=== PATIENT | male | born 1930 | race African-American/Black ===

== ENCOUNTER → 2019-11-03 | Emergency (ER) | payer MEDICARE, OTHER ==
[~2019-11-03] VITALS: Ht 172.7 cm; Wt 77.1 kg
[2019-11-04 05:57] VITALS: BP 162/79
== END | disposition home or self-care (01) ==
LOC: EDBD 22:22 → ER 22:22
DX: S01.81XA Laceration without foreign body of other part of head, initial encounter (principal); F03.90 Unspecified dementia, unspecified severity, without behavioral disturbance, psychotic disturbance, mood disturbance, and anxiety; W01.198A Fall on same level from slipping, tripping and stumbling with subsequent striking against other object, initial encounter; Y93.89 Activity, other specified; Y92.89 Other specified places as the place of occurrence of the external cause; Y99.8 Other external cause status
CPT/HCPCS: 12011; 70450